=== PATIENT | female | born 1945 | race Caucasian/White ===

== ENCOUNTER 2019-11-05 12:30 | Emergency (ER) | payer MEDICARE, MEDICAID ==
[~2019-11-05] VITALS: Ht 157.5 cm; Wt 72.8 kg
--- NOTE | 2019-11-05 12:54 | NUR ---
PT REFUSING GOWN STATING SHE ALREADY HAD IMAGING AT [facility]. PT THEN STATES "BUT I'M WORRIED ABOUT MY STOMACH". PT ALSO STATES PAIN TO R ARM WHICH WAS ALSO XRAYED. PT CONTINUES TO REFUSE GOWN. PT ALLOWED BP CUFF, PULSE OX TO BE PLACED. BP IMPROVED FROM TRIAGE, UPDATED IN COMPUTER.
[2019-11-05] MEDS ORDERED: MAALOX/HYOSCYAMINE/LIDOCAINE 45 ML BTL ONE (13:23)
--- NOTE | 2019-11-05 13:28 | NUR ---
BEDSIDE REPORT FROM WINDY RN, PT RESTING IN [facility], CALL LIGHT WITHIN REACH
[2019-11-05] MEDS ORDERED: MAALOX/HYOSCYAMINE/LIDOCAINE 45 ML BTL PO ONE (13:30)
[2019-11-05 14:15] VITALS: BP 135/78
== END 2019-11-05 14:17 | disposition home or self-care (01) ==
LOC: ED 14:00
DX: K29.00 Acute gastritis without bleeding (principal); E11.9 Type 2 diabetes mellitus without complications; Z87.891 Personal history of nicotine dependence
CPT/HCPCS: 99283

== ENCOUNTER 2019-12-07 16:23 | Emergency (ER) | payer MEDICARE, MEDICAID ==
[~2019-12-07] VITALS: Ht 157.5 cm; Wt 69.0 kg
[2019-12-07] MEDS ORDERED: PROMETHAZINE 25 MG/ML, 1ML ONE (16:55)
[2019-12-07] MEDS ORDERED: PROMETHAZINE 25 MG/ML, 1ML IM ONE (17:00)
[2019-12-07 17:27] LABS: BASOPHILS # (AUTO) 0.07 x10^3/uL (0-0.1); BASOPHILS % (AUTO) 1 % (0-1); EOSINOPHILS # (AUTO) 0.09 x10^3/uL (0-0.4); EOSINOPHILS % (AUTO) 1 % (1-7); LYMPHOCYTES # (AUTO) 2.22 x10^3/uL (1-3.4); LYMPHOCYTES % (AUTO) 26 % (22-44); MD NO; MEAN CORPUSCULAR HEMOGLOBIN 30.2 pg (27.0-34.8); MEAN CORPUSCULAR HGB CONC 33.1 g/dL (32.4-35.8); MEAN CORPUSCULAR VOLUME 91.2 fL (80-100); MEAN PLATELET VOLUME 7.9 fL (7.4-10.4); MONOCYTES # (AUTO) 0.44 x10^3/uL (0.2-0.8); MONOCYTES % (AUTO) 5 % (2-9); NEUTROPHILS # (AUTO) 5.84 x10^3/uL (1.8-6.8); NEUTROPHILS % (AUTO) 68 % (42-75); PLATELET COUNT 324 x10^3/uL (130-400); RED BLOOD COUNT 3.99 x10^6/uL (3.82-5.3); RED CELL DISTRIBUTION WIDTH 13.5 % (9.6-15.2)
[2019-12-07 17:38] LABS: ALANINE AMINOTRANSFERASE 37 U/L (12-78); ALBUMIN 3.7 g/dL (3.4-5.0); ANION GAP 8 mmol/L (5-15); CALCIUM 9.7 mg/dL (8.5-10.1); CHLORIDE 108 mmol/L (98-107); CREATININE 1.56 mg/dL (0.55-1.02)
[2019-12-07 17:40] LABS: ALKALINE PHOSPHATASE 81 U/L (45-117); BILIRUBIN,TOTAL 0.6 mg/dL (0.2-1.0)
[2019-12-07 18:11] LABS: MICROSCOPIC AUTO
[2019-12-07] MEDS ORDERED: ACETAMINOPHEN 500 MG TABLET ONE (18:26)
[2019-12-07] MEDS ORDERED: MAALOX/HYOSCYAMINE/LIDOCAINE 45 ML BTL ONE (18:26)
[2019-12-07] MEDS ORDERED: MAALOX/HYOSCYAMINE/LIDOCAINE 45 ML BTL PO ONE (18:30)
[2019-12-07] MEDS ORDERED: ACETAMINOPHEN 500 MG TABLET PO ONE (18:30)
[2019-12-07 19:27] VITALS: BP 159/84
== END 2019-12-07 19:29 | disposition home or self-care (01) ==
LOC: ED 19:00
DX: K80.20 Calculus of gallbladder without cholecystitis without obstruction (principal); E78.5 Hyperlipidemia, unspecified; I10 Essential (primary) hypertension; Z87.891 Personal history of nicotine dependence
CPT/HCPCS: 36415; 76700; 80053; 81001; 83690; 85025; 87086; 96372; 99284; J2550; 87147

== ENCOUNTER 2021-01-10 10:59 | Emergency (ER) | payer MEDICARE, MEDICAID ==
[~2021-01-10] VITALS: Ht 162.6 cm; Wt 74.0 kg
--- NOTE | 2021-01-10 11:16 | NUR ---
PT BIB [facility] FOR DIZINESS AFTER WALKING TO THE STORE IN THE [place]. PT WITH HISTORY OF HTN AND DM. FSBS 189. UPON ARRIVAL TO [facility] ED, PT ATTACHED TO VS AND CARDIAC MONITORS. VSS.EKG DONE BY YUKO AT BS. PT EDUCATED ON ER PROCESS AND VERBALIZES UNDERSTANDING. DR JIMENEZ AT BS. PT DENIES ANY NEEDS AT THIS TIME; AWAITING ORDERS FROM ERP.
[2021-01-10] MEDS ORDERED: SODIUM CHLORIDE 0.9% 1,000ML IVBOLUS ONE (11:30)
[2021-01-10 11:44] VITALS: BP 143/60
--- NOTE | 2021-01-10 11:45 | NUR ---
TASK RN: 500 NS BOLUS ADMINIATERED PER [facility] AT BEDSIDE FOR BLOOD CULTURES POC UPDATED WITH PATIENT-REQUIRED SOME RE-DIRECTION PATIENT INSISTENT THAT SHE NEEDS TO GO HOME TO FEED HER ANIMALS
[2021-01-10 12:03] LABS: MICROSCOPIC NOT IND
[2021-01-10 12:27] LABS: ALANINE AMINOTRANSFERASE 30 U/L (12-78); ALBUMIN 3.5 g/dL (3.4-5.0); ANION GAP 9 mmol/L (5-15); CALCIUM 9.4 mg/dL (8.5-10.1); CHLORIDE 109 mmol/L (98-107)
[2021-01-10 12:32] LABS: ALKALINE PHOSPHATASE 65 U/L (45-117); BILIRUBIN,TOTAL 0.4 mg/dL (0.2-1.0); CREATINE KINASE, TOTAL 55 U/L (26-192); CREATININE 2.02 mg/dL (0.55-1.02); TOTAL PROTEIN 7.7 g/dL (6.4-8.2); TROPONIN I < 0.015 ng/mL (0.000-0.045)
--- NOTE | 2021-01-10 12:47 | NUR ---
PT REQUESTING TO LEAVE AMA. ENCOURAGED PT TO STAY FOR ADDITIONAL TREATMENT, BUT PT REFUSED. DR JIMENEZ NOTIFIED. PT PIV ACCESS D/C WITH TIP INTACT PRIOR TO PT LEAVING. AMA FORMED SIGNED TO BE PLACED WITH PT CHART. PT REMOVED ALL VS AND CARDIAC MONITORS AND REFUSING TO STAY FOR D/C VITALS. PT STATES THAT SHE IS PLANNING TO WALK HOME. PT AMBULATES WITH STEADY GAIT TO [employer]
[2021-01-10 12:49] LABS: BASOPHILS % (AUTO) 1 % (0-1); EOSINOPHILS % (AUTO) 3 % (1-7); LYMPHOCYTES % (AUTO) 29 % (22-44); MEAN CORPUSCULAR HEMOGLOBIN 30.8 pg (27.0-34.8); MEAN CORPUSCULAR HGB CONC 34.2 g/dL (32.4-35.8); MEAN PLATELET VOLUME 8.6 fL (7.4-10.4); MONOCYTES % (AUTO) 4 % (2-9); NEUTROPHILS % (AUTO) 63 % (42-75); PLATELET COUNT 206 x10^3/uL (130-400); RED BLOOD COUNT 3.72 x10^6/uL (3.82-5.3); RED CELL DISTRIBUTION WIDTH 13.5 % (9.6-15.2)
== END 2021-01-10 12:57 | disposition left against medical advice (07) ==
LOC: ED 12:56
DX: R42 Dizziness and giddiness (principal); R53.1 Weakness; R94.31 Abnormal electrocardiogram [ECG] [EKG]; Z72.9 Problem related to lifestyle, unspecified; I10 Essential (primary) hypertension; E78.5 Hyperlipidemia, unspecified; E11.9 Type 2 diabetes mellitus without complications
CPT/HCPCS: 36415; 71045; 80053; 81003; 82550; 83605; 84484; 85025; 87040; 93005; 99285; J7030